=== PATIENT | male | born 1975 | race Hispanic/Latino ===

== ENCOUNTER → 2018-03-29 | Day surgery (SDC) | payer OTHER ==
[~2018-03-29] MED LIST: DESFLURANE 240 ML BTL INH ONE; DEXAMETHASONE SOD PHOS INJ 4 MG/ML VIAL ONE; EPINEPHRINE HCL INJ 1 MG/ML AMP ONE; FENTANYL CITRATE/PF 100MCG/2 ML INJ ONE; GLYCOPYRROLATE INJ 1MG/ 5 ML SYR ONE; KETOROLAC TROMETHAMINE 30 MG/ML VIAL ONE; LIDOCAINE 1% W/EPINEPHRINE 20 ML VIAL ONE; MEPERIDINE HCL INJ 50 MG/ML INJ ONE; MIDAZOLAM HCL 2 MG/2 ML VIAL ONE; NEOSTIGMINE 5 MG/5ML SYR ONE; ONDANSETRON HCL INJ 2 MG/ML VIAL ONE; PROPOFOL IV EMULSION 10 MG/ML 20 ML VIAL ONE; ROCURONIUM BROMIDE 10 MG/ML 5ML VIAL ONE
--- NOTE | 2018-03-29 15:08 | Operative Report ---
DATE OF PROCEDURE: March 29, 2018 CHIEF COMPLAINT: Chronic sinusitis, nasal obstruction. POSTOPERATIVE DIAGNOSES 1. Chronic sinusitis. 2. Nasal obstruction. TITLE OF PROCEDURES 1. Left maxillary sinus antrostomy. 2. Resection of mucocele in the left maxillary antrum. 3. Septoplasty. ANESTHESIA: Anesthesiology group. INDICATIONS: This 43-year-old male has history of nasal obstruction. The patient has postnasal drip discharge from his nose. His condition has been treated with topical nasal steroid, decongestant, antibiotics over the past 8 weeks with no improvement. On examination he was noted to have a deviated nasal septum in the left side anteriorly about 40%. A CT scan of paranasal sinuses done before surgery showed the patient has involvement of the left maxillary sinus with a mucocele in the lateral superior portion of the maxillary sinus on the left side. It also confirmed deviated nasal septum. It was decided that endoscopic sinus surgery and septoplasty and other necessary procedures would be beneficial for him. DETAILS OF PROCEDURE: Patient was taken to the operating room, put under general anesthesia, endotracheally intubated. The nose was injected with 1% Xylocaine with 1:100,000 epinephrine for hemostasis. Epinephrine-soaked pledget was inserted in the nose and subsequently removed. The left paranasal sinuses were approached first. Middle turbinate was medialized. Using a curved probe, the maxillary antrum was entered. The maxillary antrum was enlarged anteriorly and posteriorly using backbiting Jake-Cut forceps respectively. Using a 70-degree telescope, a mucocele was noted in the superior lateral portion of the maxillary sinus. This was dissected using the 120-degree tip of the microshaver. Pus was noted in the mucocele. The septoplasty was performed. A hemitransfixion incision was done on the left side. Mucoperichondrial flap was elevated on the left. Bony cartilaginous junction was encountered, and this was . Perpendicular plate of the ethmoid was transected. This was removed along with the vomer. The septal spur collagenous portion removed using a [place] elevator and bony spur using a 4 mm straight chisel. The quadrangular cartilage septum, being freed from posterior and inferior constraint, was able to swing back in the midline. Hemitransfixion incision was closed using 4-0 chromic suture in an interrupted fashion. Septal whipstitch was done using 4-0 plain gut suture to reapproximate the mucoperichondrial flap and prevent septal hematoma formation. Nasopore was inserted in the left sinus cavity to prevent synechiae formation and for hemostasis. The patient tolerated the above procedure well with estimated blood loss about 20 mL. He was given 20 mg of Decadron intraoperatively. Patient was able to be transferred to the recovery room in stable condition. Job#: [id number]
[2018-03-29 15:30] VITALS: BP 117/77
== END | disposition home or self-care (01) ==
LOC: OR 11:14
PROVIDERS: ATTEND Otolaryngology Otolaryngology/Facial Plastic Surgery
DX: J32.0 Chronic maxillary sinusitis (principal); J34.89 Other specified disorders of nose and nasal sinuses; J34.2 Deviated nasal septum; I10 Essential (primary) hypertension; Z01.810 Encounter for preprocedural cardiovascular examination
CPT/HCPCS: 30520; 31267; 88300; 88305; 93005; J0171; J1100; J1885; J2175; J2250; J2405; J2704; J3490; 88304